=== PATIENT | female | born 2000 | race Caucasian/White ===

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

== ENCOUNTER 2022-05-05 21:32 | Emergency (ER) | payer OTHER ==
[~2022-05-05] VITALS: Ht 149.9 cm; Wt 76.4 kg
[2022-05-05] MEDS ORDERED: ONDANSETRON ODT8 MG PO (22:57)
[2022-05-05] MEDS ORDERED: PROTONIX40 MG PO (22:57)
== END 2022-05-05 23:19 | disposition home or self-care (01) ==
LOC: ED 21:32
DX: R10.11 Right upper quadrant pain (principal); F43.10 Post-traumatic stress disorder, unspecified
CPT/HCPCS: 36415; 76705; 80053; 81001; 83690; 84703; 85025; 96361; 96374; 99284-25; A9270; J2405; J7030

== ENCOUNTER 2022-06-16 21:21 | Emergency (ER) | payer OTHER ==
[~2022-06-16] VITALS: Ht 149.9 cm; Wt 78.0 kg
[~2022-06-16 21:21] MED LIST changes: +ONDANSETRON ODT8 MG PO; +PROTONIX40 MG PO
== END 2022-06-16 23:08 | disposition home or self-care (01) ==
LOC: ED 21:21
DX: B34.9 Viral infection, unspecified (principal); Z20.822 Contact with and (suspected) exposure to COVID-19
CPT/HCPCS: 87502; 99283; A9270; U0003